=== PATIENT | female | born 1990 | race Caucasian/White ===

== ENCOUNTER 2018-11-25 10:36 | Emergency (ER) | payer BC, OTHER ==
[2018-11-25] MEDS ORDERED: Morphine 4 MG/ML VIAL (1 ml) 4 MG/ML VIAL IV ONE (10:56)
[2018-11-25] MEDS ORDERED: Famotidine IV * 20 MG in NS 0.9% 100 ML* 100 ML IVPB ONE (10:56)
[2018-11-25] MEDS ORDERED: Ondansetron INJ* 2 MG/ML VIAL IV ONE (10:56)
[2018-11-25] MEDS ORDERED: NS 0.9% 1000 ML** 1,000 ML IV ONE (10:56)
--- NOTE | 2018-11-25 11:02 | ED ---
GI/ HPI - HPI Summary HPI Summary: Patient is a 28 y/o F presenting to [facility] with chief complaint of diffuse, sharp abdominal pain for the past two days, since 11/23/18. She notes that she felt bloated prior to abdominal pain onset. Patient additionally endorses nausea and dry heaving. Patient states that she experienced chills earlier as well. Last bowel movement was yesterday and is described as normal. Dysuria, increased frequency of urination, vaginal bleeding and discharge are denied. She states that standing and ambulation aggravate Sx. LNMP was last month, patient states that she is not late. No PMHx is reported. No Hx of abdominal surgeries. NKDA. She is a non-smoker, reports occasional alcohol usage, and denies substance usage. Mother is present in the room. Mother notes that the patient has Hx of abdominal pain, stating that she would have pain that makes her "bed-ridden" for three days, and that the pain would subsequently spontaneously resolve. On triage, pain is rate 8/10, nothing is noted to aggravate/alleviate Sx. Home medications and allergies are reviewed. - History of Current Complaint Chief Complaint: EDAbdPain Stated Complaint: ABD PAIN Hx Obtained From: Patient, Family/Supervisor Scrap Preparation - mother Onset/Duration: Started Days Ago - two days, Still Present Timing: Constant, Lasting Days - two days Severity: Severe - 8/10 Current Severity: Severe Pain Intensity: 8 Location of Pain: Diffuse Pain Characteristics: Sharp Associated Signs and Symptoms: Positive: Nausea, Vomiting - dry heaving, Chills , Abdominal Pain, Other: - NEGATIVE - ABNORMAL BOWEL MOVEMENT. Negative: Fever - on vitals, temp is 97.3 F Additional Signs & Symptoms: Negative: Vaginal Bleeding, Vaginal Discharge Aggravating Factor(s): Walking/Exertion Alleviating Factor(s): Nothing - Allergy/Home Medications Allergies/Adverse Reactions: Allergies Allergy/AdvReac Type Severity Reaction Status Date / Time No Known Allergies Allergy Verified 11/25/18 10:45 Home Medications: Home Medications Norethindrone-E.estradiol-Iron [Junel Fe 07/12 1-20 mg-Mcg] 1 tab PO DAILY [History Confirmed 11/25/18] ValACYclovir (*) [Valtrex 1 GM(*)] 1 gm PO DAILY 11/25/18 [History Confirmed 11/08] PMH/Surg Hx/FS Hx/Imm Hx Sensory History: Denies: Hx Legally Blind, Hx Deafness Opthamlomology History: Denies: Hx Legally Blind EENT History: Denies: Hx Deafness Infectious Disease History: No Infectious Disease History: Denies: Traveled Outside the [place] in Last 30 Days - Family History Known Family History: Negative: Diabetes - Social History Alcohol Use: Occasionally Substance Use Type: Reports: None Smoking Status (MU): Never Smoked Tobacco Review of Systems Positive: Chills. Negative: Fever - ON VITALS, TEMP IS 97.3 F Gastrointestinal: Other - NEGATIVE - ABNORMAL BOWEL MOVEMENTS Positive: Abdominal Pain, Vomiting, Nausea Genitourinary: Other - NEGATIVE - VAGINAL BLEEDING Negative: dysuria, discharge - VAGINAL , frequency - OF URINATION All Other Systems Reviewed And Are Negative: Yes Physical Exam - Summary Physical Exam Summary: GENERAL: Patient is a well-developed and nourished female who is lying comfortable in the stretcher. Patient is not in any acute respiratory distress. HEAD AND FACE: Normocephalic EYES: PERRLA, EOMI x 2. EARS: Hearing grossly intact. MOUTH: Oropharynx within normal limits. NECK: Supple, trachea is midline, no adenopathy, no JVD, no carotid bruit. CHEST: Symmetric, no tenderness at palpation LUNGS: Clear to auscultation bilaterally. No wheezing or crackles. CVS: Regular rate and rhythm, S1 and S2 present, no murmurs or gallops appreciated. ABDOMEN: Soft, diffuse abdominal tenderness, no guarding, no rebound. Bowel sounds are normal. No abnormal abdominal pulsations. EXTREMITIES: Full ROM in all major joints, no edema, no cyanosis or clubbing. NEURO: Alert and oriented x 3. No acute neurological deficits. Speech is normal and follows commands. SKIN: Dry and warm Triage Information Reviewed: Yes Vital Signs On Initial Exam: Initial Vitals Temp Pulse Resp BP Pulse Ox 97.3 F 94 18 149/81 97 11/25/18 10:44 11/25/18 10:44 11/25/18 10:44 11/25/18 10:44 11/25/18 10:44 Vital Signs Reviewed: Yes Diagnostics - Vital Signs Vital Signs Temp Pulse Resp BP Pulse Ox 11/25/18 10:44 97.3 F 94 18 149/81 97 - Laboratory Result Diagrams: 11/25/18 10:58 11/25/18 10:58 Lab Statement: Any lab studies that have been ordered have been reviewed, and results considered in the medical decision making process. - CT CT ABD/PEL CT Interpretation Completed By: Radiologist Summary of CT Findings: CT ABD/PEL IMPRESSION: #. Given gas and fluid distention of the colon consider potential gastroenteritis. #. Normal appendix documented. #. Probable involuting hemorrhagic or follicular cyst of the RIGHT ovary measuring 1.5 cm. maximum dimension. Physiologic small volume of free pelvic fluid. This report was reviewed by Dr. Walker. Re-Evaluation - Re-Evaluation First Eval Re-Evaluation Time: 14:51 Comment: Discussed results with patient, and the patient reports feeling better. The patient is hemodynamically stable and safe for discharge. Strict return precautions given and the patient will otherwise follow up with PCP. GIGU Course/Dx - Course Course Of Treatment: Patient is a 28 y/o F presenting to [facility] with chief complaint of diffuse, sharp abdominal pain for the past two days, since 11/23/18. She notes that she felt bloated prior to abdominal pain onset. Patient additionally endorses nausea and dry heaving. Patient states that she experienced chills earlier as well. Last bowel movement was yesterday and is described as normal. Dysuria, increased frequency of urination, vaginal bleeding and discharge are denied. On physical exam, diffuse abdominal tenderness is noted, no guarding, no rebound. Labs MCH 32, absolute monos 0.9, glucose 103, lactic acid 0.4, AST 12, lipase < 10, beta HCG < 0.6. UA showed trace ketones. During ED course, patient received fluids, Zofran 4 mg IV ONCE, morphine 4 mg IV, and famotidine 20 mg in sodium chloride, 102 mls @ 408 mls/hr IVPD ONCE ONE. CT ABD/PEL IMPRESSION: #. Given gas and fluid distention of the colon consider potential gastroenteritis. #. Normal appendix documented. #. Probable involuting hemorrhagic or follicular cyst of the RIGHT ovary measuring 1.5 cm. maximum dimension. Physiologic small volume of free pelvic fluid. Discussed results with patient, and the patient reports feeling better. The patient is hemodynamically stable and safe for discharge. Strict return precautions given and the patient will otherwise follow up with PCP. - Diagnoses Provider Diagnoses: Abdominal pain, Ovarian cyst, Gastroenteritis Discharge - Sign-Out/Discharge Documenting (check all that apply): Patient Departure - discharge Patient Received Moderate/Deep Sedation with Procedure: No - Discharge Plan Condition: Stable Disposition: HOME Prescriptions: Ibuprofen TAB* [Motrin TAB* 800 MG] 800 mg PO Q6H #20 tab Ondansetron ODT TAB* [Zofran 4 MG Odt TAB*] 4 mg PO Q6H PRN #12 tab.odt PRN Reason: Nausea Patient Education Materials: Ovarian Cyst (ED), Gastroenteritis (ED), Abdominal Pain (ED) Referrals: Edna Murphy MD [Primary Care Provider] - 3 Days Becky Smyth MD [Medical Doctor] - 3 Days Additional Instructions: RETURN TO ED FOR ANY NEW OR WORSENING SYMPTOMS. FOLLOW UP WITH YOUR PRIMARY CARE PHYSICIAN AND OBGYN WITHIN THREE DAYS. - Billing Disposition and Condition Condition: STABLE Disposition: Home - Attestation Statements Document Initiated by Scribe: Yes Documenting Scribe: YUSEF CHEUNG Provider For Whom Clara is Documenting (Include Credential): ZULEMA WALKER MD Scribe Attestation: YUSEF Salazar, scribed for ZULEMA WALKER MD on 11/25/18 at 1955. Scribe Documentation Reviewed: Yes Provider Attestation: The documentation as recorded by the YUSEF cruz accurately reflects the service I personally performed and the decisions made by , ZULEMA WALKER MD Status of Scribe Document: Viewed
[2018-11-25 11:18] LABS: ABS Eosinophils 0.1 10^3/ul (0-0.6); ABS Lymphocytes 1.4 10^3/ul (1.0-4.8); ABS Monocytes 0.9 10^3/ul (0-0.8); ABS Neutrophils 5.6 10^3/ul (1.5-7.7); Eosinophil % 1.5 %; Hematocrit 44 % (35-47); Hemoglobin 14.8 g/dL (12.0-16.0); Lymphocyte % 17.7 %; Mean Corpuscular HGB Conc 34 g/dL (31-36); Mean Corpuscular Hemoglobin 32 pg (27-31); Mean Corpuscular Volume 95 fL (80-97); Mean Platelet Volume 7.4 fL (7.4-10.4); Platelet Count 300 10^3/uL (150-450); Red Blood Count 4.69 10^6 /uL (3.70-4.87); Red Cell Distribution Width 13 % (10.5-15); White Blood Count 8.1 10^3/uL (3.5-10.8)
[2018-11-25 11:29] LABS: ALT 9 U/L (7-52); AST 12 U/L (13-39); Albumin 4.5 g/dL (3.2-5.2); Albumin/Globulin Ratio 1.8 (1-3); Alkaline Phosphatase 39 U/L (34-104); Anion Gap 8 mmol/L (2-11); BUN/Creatinine Ratio 17.5 (8-20); Blood Urea Nitrogen 14 mg/dL (6-24); CO2 Carbon Dioxide 22 mmol/L (22-32); Calcium 9.1 mg/dL (8.6-10.3); Chloride 107 mmol/L (101-111); EGFR African American 104.9 (>60); EGFR Non-African American 86.7 (>60); Globulin 2.5 g/dL (2-4); Glucose 103 mg/dL (70-100); Potassium 3.6 mmol/L (3.5-5.0); Sodium 137 mmol/L (135-145)
[2018-11-25 11:34] LABS: HCG Pregnancy < 0.60 mIU/mL
[2018-11-25] MEDS ORDERED: Iohexol 300* (CONTRAST) 10 ML SDV IV ONE (13:05)
[2018-11-25 13:29] LABS: Urine Appearance Cloudy; Urine Bilirubin Negative (Negative); Urine Blood Negative (Negative); Urine Color Yellow; Urine Glucose Negative (Negative); Urine Ketones Trace (Negative); Urine Nitrite Negative (Negative); Urine Protein Negative (Negative); Urine Specific Gravity 1.009 (1.010-1.030); Urine Urobilinogen Negative (Negative)
[2018-11-25] MEDS ORDERED: Ketorolac INJ* 30 MG/ML 1 ML VIAL IV PUSH ONE (14:54)
[2018-11-25 15:14] VITALS: BP 121/67
[2018-11-25] MEDS ORDERED: oxyCODONE/Acetamin 5/325 MG* TAB PO ONE (15:43)
== END 2018-11-25 15:55 | disposition home or self-care (01) ==
LOC: ED 10:36
DX: K52.9 Noninfective gastroenteritis and colitis, unspecified (principal); N83.209 Unspecified ovarian cyst, unspecified side
CPT/HCPCS: 36415; 74177; 80053; 81003; 83605; 83690; 84702; 85025; 86140; 96361; 96365; 96374; 96375; 99283; A9270-GY; J1885; J2270; J2405; Q9967

== ENCOUNTER 2023-11-24 13:07 | Inpatient (IN) ==
[2023-11-24] MEDS ORDERED: Lidocaine 1% VIAL 10 MG/ML 30 ML VIAL INJ PRN (14:25)
[2023-11-24] MEDS: miSOPROStol 100 mcg TAB PO ONE ×2 (14:45→18:40)
[2023-11-24 17:03] LABS: Urine Benzodiazepine Screen None Detected (None Detect); Urine Cannabinoids Screen Presumptive Positive (None Detect); Urine Opiates Screen None Detected (None Detect)
[2023-11-24 17:45] LABS: ABS Lymphocytes 1.8 10^3/uL (1.0-4.8); ABS Monocytes 0.5 10^3/uL (0.0-0.9); ABS Nucleated RBC 0.02 10^3/ul; Eosinophil % 0.3 %; Hematocrit 32.2 % (35-45); Hemoglobin 11.2 g/dL (11.5-14.3); Lymphocyte % 24.6 %; Mean Corpuscular Hemoglobin 30.1 pg (27-33); Mean Corpuscular Hgb Conc 34.8 g/dL (31-36); Mean Corpuscular Volume 86.4 fL (80-97); Mean Platelet Volume 7.6 fL (7.5-11.2); Nucleated Red Blood Cells % 0.2 %/100WBC (0.0-0.8); Platelet Count 327 10^3/uL (150-450); Red Blood Count 3.73 10^6/uL (3.63-4.92); Red Cell Distribution Width 14.8 % (12-17); White Blood Count 7.3 10^3/uL (3.8-11.8)
[2023-11-24] MEDS ORDERED: miSOPROStol 100 mcg TAB PO ONE (22:45)
[2023-11-24] MEDS: Lactated Ringers 1000 ml BAG 1,000 ML IV SCH (22:53)
[2023-11-24] MEDS: Oxytocin in LR 20,000 MILLI.UNIT/1,000 ML BAG IV SCH (22:54)
[2023-11-25] MEDS: OBEPIDURAL (200 ML) 200 ML EPIDURAL SCH (02:33)
[2023-11-25] MEDS ORDERED: Phenylephrine 40 mcg/mL 10mL (400mcg) SYRINGE IV PUSH PRN (02:50)
[2023-11-25] MEDS: Phenylephrine 40 mcg/mL 10mL (400mcg) SYRINGE IV PUSH PRN (03:00)
[2023-11-25 03:12] LABS: Urine Appearance Clear; Urine Bilirubin Negative (Negative); Urine Blood 1+ (Negative); Urine Color Colorless; Urine Glucose Negative (Negative); Urine Ketones Trace (Negative); Urine Nitrite Negative (Negative); Urine Protein Negative (Negative); Urine Specific Gravity 1.009 (1.002-1.030); Urine Urobilinogen Negative (Negative); Urine pH 7.5 (5.0-8.0)
[2023-11-25 03:19] LABS: Urine Bacteria Absent /HPF (Absent); Urine Red Blood Cell 2+(6-10/hpf) /HPF (0-Trace); Urine Squamous Epithelial Cell Present /HPF (Absent); Urine White Blood Cell Trace(0-5/hpf) /HPF (0-Trace)
[2023-11-25] MEDS: Lactated Ringers 1000 ml BAG 1,000 ML IV SCH (04:25)
[2023-11-25] MEDS: Sodium Citrate/Citric Acid LIQ 15 ML UDC PO PRN (05:09)
[2023-11-25] MEDS: Lactated Ringers 1000 ml BAG 1,000 ML IV ONE ×2 (05:12→20:16)
[2023-11-25] MEDS ORDERED: Lidocaine 2% w/ EPI 1:200,000 MPF 20 ML SDV VIAL ONE (05:21)
[2023-11-25] MEDS ORDERED: Chloroprocaine 3% 20 ml VIAL ONE (05:21)
[2023-11-25] MEDS ORDERED: Phenylephrine 40 mcg/mL 10mL (400mcg) SYRINGE ONE (05:30)
[2023-11-25] MEDS ORDERED: Ondansetron 4 mg VIAL 2 MG/ML 2 ml VIAL ONE (05:31)
[2023-11-25] MEDS ORDERED: Oxytocin 10 UNITS/ML 1 ML VIAL ONE (05:37)
[2023-11-25] MEDS ORDERED: Dexamethasone IV 4 MG/ML VIAL 1 ml VIAL ONE (05:38)
[2023-11-25] MEDS ORDERED: Morphine PF AMP (0.5MG/ML) 5 MG/10 ML AMP ONE (05:49)
[2023-11-25] MEDS ORDERED: Naloxone 0.4 mg VIAL 0.4 mg/ml 1 ml VIAL IV PUSH PRN (05:55)
[2023-11-25] MEDS ORDERED: Metoclopramide 5 MG/ML VIAL (10 mg) IV PRN (05:55)
[2023-11-25] MEDS ORDERED: Ondansetron 4 mg VIAL 2 MG/ML 2 ml VIAL IV PRN (05:55)
[2023-11-25] MEDS ORDERED: Naloxone 0.4 mg VIAL 0.4 mg/ml 1 ml VIAL IV PRN (06:03)
[2023-11-25] MEDS: Acetaminophen IV 1 GM/100ML 1,000 MG/100 ML BAG IV PRN (06:59)
[2023-11-25] MEDS ORDERED: Witch Hazel PAD JAR TOPICAL PRN (07:03)
[2023-11-25] MEDS ORDERED: Dibucaine 1% OINT 28.35 GM TUBE PR PRN (07:03)
[2023-11-25] MEDS ORDERED: Glycerin ADULT 2.4 gm SUPP PR PRN (07:03)
[2023-11-25] MEDS: ceFOXitin 2 GM IVPREMIX 2 GM/50 ML BAG ONE (07:04)
[2023-11-25] MEDS: fentaNYL 100 mcg/2 ml 50 MCG/ML VIAL IV PRN (07:24)
[2023-11-25] MEDS ORDERED: Lactated Ringers 1000 ml BAG 1,000 ML IV SCH (08:00)
[2023-11-25] MEDS: Lidocaine 1.5% EPI 1:200,000 30 ML SDV ONE (20:16)
[2023-11-25] MEDS: ceFOXitin 2 GM IVPREMIX 2 GM/50 ML BAG IVPB ONE (20:16)
[2023-11-26] MEDS: OBEPIDURAL (200 ML) 200 ML EPIDURAL ONE (07:29)
[2023-11-26 07:42] LABS: ABS Lymphocytes 2.6 10^3/uL (1.0-4.8); ABS Monocytes 0.6 10^3/uL (0.0-0.9); ABS Neutrophils 9.6 10^3/uL (1.5-7.6); ABS Nucleated RBC 0.01 10^3/ul; Eosinophil % 0.3 %; Hematocrit 25.6 % (35-45); Hemoglobin 8.7 g/dL (11.5-14.3); Lymphocyte % 20.1 %; Mean Corpuscular Hemoglobin 29.6 pg (27-33); Mean Corpuscular Hgb Conc 33.9 g/dL (31-36); Mean Corpuscular Volume 87.1 fL (80-97); Mean Platelet Volume 7.3 fL (7.5-11.2); Nucleated Red Blood Cells % 0.1 %/100WBC (0.0-0.8); Platelet Count 260 10^3/uL (150-450); Red Blood Count 2.94 10^6/uL (3.63-4.92); Red Cell Distribution Width 14.7 % (12-17); White Blood Count 12.9 10^3/uL (3.8-11.8)
[2023-11-27 08:06] VITALS: BP 120/78
[2023-11-27] MEDS: Iron Sucrose 200 MG in NS 0.9% 100 ml BAG 100 ML IVPB ONE (11:01)
== END 2023-11-27 12:31 | disposition home or self-care (01) | DRG 540 ==
LOC: MCHOBOUT 13:07 → MCHOB 14:45
PROVIDERS: ADMIT Midwife; ATTEND Obstetrics & Gynecology